=== PATIENT | male | born 1955 | race Hispanic/Latino ===

== ENCOUNTER 2021-05-04 11:30 | Emergency (ER) | payer OTHER ==
[~2021-05-04] VITALS: Ht 170.2 cm; Wt 70.3 kg
[2021-05-04] MEDS ORDERED: CEFTRIAXONE 1G VIAL IV SCH (13:30)
[2021-05-04] MEDS ORDERED: APAP-CODEINE 300/30MG TAB PO ONE (13:45)
[2021-05-04] MEDS ORDERED: KETOROLAC 30MG VIAL (30MG/ML) IM ONE (13:45)
[2021-05-04] MEDS ORDERED: LIDOCAINE HCL-MPF 1% 2ML VIAL ONE (13:51)
[2021-05-04] MEDS ORDERED: IBUP-2070 PO (13:59)
[2021-05-04] MEDS ORDERED: CLIN300C10 PO (13:59)
[2021-05-04] MEDS ORDERED: CEFTRIAXONE 1G VIAL IM SCH (14:00)
== END 2021-05-04 14:21 | disposition home or self-care (01) ==
LOC: EDH 11:30
DX: L73.9 Follicular disorder, unspecified (principal); I10 Essential (primary) hypertension; Z79.899 Other long term (current) drug therapy
CPT/HCPCS: 96372 ×2; 99284; J0696; J1885; J3490

== ENCOUNTER → 2024-09-20 | Outpatient (CLI) | payer MEDICARE ==
[~2024-09-20] MED LIST: CLIN-141 PO; IBUP-2070 PO; IOHEXOL 350 MG/ML 100ML INFUS..BTL IV ONE
--- NOTE | 2024-09-20 10:16 | HMCIMG ---
CT CARDIAC ANGIO W/CONT. CCTA REASON: CHEST PAIN COMPARISON: None TECHNIQUE: Images are obtained through the heart in the axial plane before and during bolus IV contrast infusion, 100 cc Omnipaque 350. 2-D and 3-D multiplanar reconstruction images were then performed. The injection had to be repeated once due to motion artifact on the first sequence, total contrast volume was 200 cc. FINDINGS: This dictation is for the noncardiac findings only. Cardiac and coronary artery findings are reported separately. Visualized portions of the lungs are clear. There is normal-appearing pulmonary interstitium. There is no hilar or mediastinal lymphadenopathy. Chest wall structures appear unremarkable. IMPRESSION: 1. Unremarkable noncardiac portions of CT cardiac angiography.
--- NOTE | 2024-09-24 20:21 | CARDIOLOGY ---
RAD REPORT: [facility] CT ANGIO RADIOLOGY REPORT: CORONARY CT ANGIOGRAPHY DATE: Sep 24, 2024 QUALITY: Excellent CLINICAL HISTORY AND INDICATION: [ coronary artery bypass graft patency, chest pain ] TECHNIQUE: After obtaining a preliminary public stenographer image, contrast imaging performed on an [employer] [id number] scanner. A dedicated, limited window, coronary imaging protocol was used, with single breath-hold, retrospective ECG gating, and automated arrhythmia rejection. 100 cc of low osmolar contrast agent: Omnipaque 350 was delivered via a 18-gauge IV catheter in the right antecubital fossa, using a power injector and followed by 60 cc of normal saline bolus as a chaser. Collimated images were reformatted at 0.5 mm intervals, and sent to an offline independent workstation for interpretation, using 3D anatomic reconstructions: Curved multiplanar reconstructions, maximum intensity projections, and multiplanar imaging. No metoprolol was administered prior to scanning due to low baseline heart rate. 0.8 mg SL nitroglycerin was given. CORONARY ARTERY DESCRIPTIONS: The coronary arteries arise in normal position. Left main coronary artery: Normal caliber vessel that bifurcates into the LAD and LCx. No stenosis. Left anterior descending coronary artery: Normal caliber vessel and gives rise to diagonal and septal branches. Severe proximal to mid LAD stenosis. Left circumflex coronary artery: Normal caliber, nondominant and gives rise to a large OM branch. There is mid LCx stenosis >70%. Right coronary artery: Large, dominant vessel giving rise to the PL and PDA branches. There are two drug eluting stents in the proximal to mid RCA. There is mixed calcified and noncalcified plaque in the distal RCA with >70% stenosis. Patent [place] to LAD. Patent SVG to OM. Kindra Ferreira MD Cardiovascular Disease [facility] KINDRA FERREIRA MD Sep 24, 2024 20:21
== END | disposition home or self-care (01) ==
LOC: RAH 08:04
PROVIDERS: ATTEND Student in an Organized Health Care Education/Training Program
DX: I25.10 Atherosclerotic heart disease of native coronary artery without angina pectoris (principal); R07.9 Chest pain, unspecified; Z95.1 Presence of aortocoronary bypass graft
CPT/HCPCS: 75574; Q9967

== ENCOUNTER → 2024-10-25 | Outpatient (CLI) | payer MEDICARE ==
[~2024-10-25] MED LIST changes: -IOHEXOL 350 MG/ML 100ML INFUS..BTL IV ONE
--- NOTE | 2024-10-25 10:13 | HMCIMG ---
US ABDOMINAL COMPLETE HISTORY: Nephrolithiasis COMPARISON: None TECHNIQUE: Multiple transverse and longitudinal ultrasound images of the abdomen were obtained. FINDINGS: Abdominal aorta and inferior vena cava are unremarkable. The visualized portion of the pancreas is within normal limits. Liver measures 17.7 cm. Liver is echogenic consistent with liver parenchymal disease. No gallstone is seen. Common duct measures 4 mm. No evidence of gallbladder wall thickening is seen. Both kidneys are seen. Right kidney measures 10.6 x 4.8 x 5 cm. Left kidney measures 10.9 x 4.6 x 4.9 cm. No hydronephrosis is seen of the both kidneys. The spleen is grossly unremarkable. IMPRESSION: 1. No gallstone or ductal dilatation is seen. 2. No hydronephrosis is seen.
== END | disposition home or self-care (01) ==
LOC: RAH 09:13
PROVIDERS: ATTEND Internal Medicine
DX: N20.0 Calculus of kidney (principal)
CPT/HCPCS: 76700